=== PATIENT | male | born 1965 | race Hispanic/Latino ===

== ENCOUNTER 2018-07-29 00:23 | Emergency (ER) | payer OTHER ==
[2018-07-29 00:32] VITALS: BP 121/85
[2018-07-29] MEDS ORDERED: FLEXERIL PO ONE (03:59)
[2018-07-29] MEDS ORDERED: TORADOL IM ONE ×2 (03:59→04:24)
[2018-07-29] MEDS ORDERED: MORPHINE IM ONE (04:06)
[2018-07-29] MEDS ORDERED: TORADOL ONE (04:18)
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
== END 2018-07-29 05:25 | disposition home or self-care (01) ==
LOC: ED 00:23
DX: M54.2 Cervicalgia (principal); V89.2XXA Person injured in unspecified motor-vehicle accident, traffic, initial encounter; Y93.89 Activity, other specified; Y92.488 Other paved roadways as the place of occurrence of the external cause; Y99.8 Other external cause status
CPT/HCPCS: 96372; 99282; J1885; J2270

== ENCOUNTER 2020-02-07 11:52 | Emergency (ER) | payer SELFPAY ==
[2020-02-07 13:30] LABS: Alanine Aminotransferase 23 units/L (7-56); Albumin 4.1 g/dL (3.9-5); BUN/Creatinine Ratio 16; Blood Urea Nitrogen 16 mg/dL (9-20); Calcium 9.1 mg/dL (8.4-10.2); Hemolysis Index 2
[2020-02-07 13:33] LABS: Basophils % (Auto) 0.4 % (0.0-1.8); Eosinophils # (Auto) 0.1 K/mm3 (0.0-0.4); Hematocrit 43.9 % (35.5-45.6); Hemoglobin 14.3 gm/dl (11.8-15.2); Lymphocytes # (Auto) 1.2 K/mm3 (1.2-5.4); Lymphocytes % (Auto) 20.6 % (13.4-35.0); Mean Corpuscular HGB Conc 33 % (32-34); Mean Corpuscular Volume 94 fl (84-94); Monocytes # (Auto) 0.5 K/mm3 (0.0-0.8); Monocytes % (Auto) 8.6 % (0.0-7.3); Platelet Count 229 K/mm3 (140-440); Red Blood Count 4.65 M/mm3 (3.65-5.03); Red Cell Distribution Width 15.1 % (13.2-15.2)
[2020-02-07 13:36] LABS: Bilirubin,Urine SM (Negative); Blood,Urine NEG (Negative); Color,Urine Amber (Yellow); Mucus,Urine 3+ /HPF
[2020-02-07 13:53] LABS: Ictotest,Urine Negative (Negative)
[2020-02-07] MEDS ORDERED: SODIUM CHLORIDE 0.9% 1000 ML 1,000 ML IV ONE (14:03)
[2020-02-07] MEDS ORDERED: FAMOTIDINE 20 MG/2 ML INJ IV ONE (14:03)
[2020-02-07] MEDS ORDERED: DICYCLOMINE 20 MG/2 ML INJ IM ONE (14:03)
[2020-02-07] MEDS ORDERED: ONDANSETRON 4 MG/2 ML INJ IV ONE (14:03)
--- NOTE | 2020-02-07 14:43 | XRay Report ---
ABDOMEN 4 VIEW(S) WITH PA CHEST INDICATION / CLINICAL INFORMATION: Nausea, vomiting, and diarrhea. COMPARISON: None available. FINDINGS: Chest: The cardiomediastinal silhouette is unremarkable. The lungs are clear. No pleural effusion. No pneumothorax. TUBES / LINES: None. BOWEL GAS PATTERN: There are multiple mildly dilated loops of small bowel with air-fluid levels ident ified. FREE AIR / EXTRALUMINAL GAS: None seen. ADDITIONAL FINDINGS: There is a circular metallic object projecting over the midline chest. IMPRESSION: 1. Multiple mildly dilated loops of small bowel with air-fluid levels suggestive of a developing giovanni l obstruction. 2. A circular metallic object projecting over the mid chest is presumably external to the patient, th ough clinical correlation is recommended. Signer Name: Valentina Christian MD Signed: 02/07/2020 2:39 PM Workstation Name: [id number]
--- NOTE | 2020-02-07 16:36 | Cat Scan Report ---
CT abdomen pelvis w con INDICATION: abd distension. TECHNIQUE: All CT scans at this location are performed using the following dose modulation technique: Automated exposure control. Helical slices were obtained through the abdomen and pelvis. 100 cc of Omnipaque 30 0 is administered. COMPARISON: None available. FINDINGS: Abdomen: There is a small hiatal hernia. There is a tiny right pleural effusion. The liver, spleen, pancreas, adrenal glands, and kidneys show no acute abnormality. There is a cyst i n the lower pole of the right kidney. There is no free air. There are fluid-filled loops of small bowel in the abdomen and there is some mild wall thickening in the small bowel loops in the midabdomen. The appearance is suspicious for an enteritis. There is no a denopathy. The aorta is normal in diameter. Pelvis: There is a very small amount of ascites in the pelvis. There are no abnormal fluid collection s. There are scattered diverticula in the colon. On review of bone windows, no acute osseous abnormalities are seen. . IMPRESSION: 1. There are fluid-filled loops of small bowel in the midabdomen with since areas of bowel wall thick ening. The appearance is most suspicious for an enteritis. There is a very small amount of ascites in the pelvis. There are no abnormal fluid collections. There is no free air. Signer Name: Trever Martel MD Signed: 02/07/2020 4:31 PM Workstation Name: [id number]
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
[2020-02-07 18:36] VITALS: BP 134/82
== END 2020-02-07 18:36 | disposition home or self-care (01) ==
LOC: ED 11:52
DX: K52.9 Noninfective gastroenteritis and colitis, unspecified (principal); A05.9 Bacterial foodborne intoxication, unspecified; Z79.899 Other long term (current) drug therapy; Z98.890 Other specified postprocedural states
CPT/HCPCS: 36415; 74022; 74177; 80053; 81001; 83690; 85025; 96361; 96372; 96374; 96375; 99284; J0500; J2405; J7030; Q9967

== ENCOUNTER 2020-05-05 23:35 | Emergency (ER) | payer SELFPAY ==
[2020-05-05 23:45] VITALS: BP 137/86
--- NOTE | 2020-05-06 | Emergency Department Report ---
Chief Complaint: Earache Stated Complaint: LEFT SIDE EARACHE Time Seen by Provider: 05/05/20 23:53 - HPI History of Present Illness: Patient is a 54-year-old male presents emergency room with complaints of a left- sided earache that began 4 to 5 days ago. He denies any ear drainage, tinnitus, hearing loss, sore throat, fever, chills, nausea, vomiting, diarrhea, cough, shortness of breath. He denies any past medical history. No allergies medications. He denies any known sick contacts or recent travel. Vitals with tachycardia, otherwise stable On exam: Non toxic appearing, no acute distress atraumatic, normocephalic normal appearance of the eyes, PERRL, EOMI, no periorbital edema or ecchymosis moist mucus membranes, normal oropharynx, normal TMs and canals bilaterally, no mastoid tenderness palpation bilaterally regular heart rate and rhythm, no gallops, no rubs, no murmurs breath sounds are clear bilaterally, no w/r/r A&O x4, no focal neuro deficit skin is warm, dry, intact Patient is presenting for otalgia No abnormality on physical examination, no signs of infection Patient will be referred to primary care doctor Discussed supportive care and symptomatic treatment Discussed strict return precautions Medical screening examination performed there is no threat to life or limb at this time - Exam Vital Signs: Vital Signs 05/05/20 23:41 Temperature 98.4 F Pulse Rate 107 H Respiratory 18 Rate Blood Pressure 137/86 O2 Sat by Pulse 95 Oximetry MSE screening note: Focused history and physical exam performed. Due to findings the following was ordered: ED Disposition for MSE Clinical Impression: Otalgia, left ear Disposition: Z-07 MED SCREENING EXAM-LEFT Is pt being admited?: No Does the pt Need Aspirin: No Condition: Stable Instructions: Earache, Adult Additional Instructions: May alternate Tylenol or ibuprofen as needed for discomfort. May use [id number] ear relief drops. May use something for sinus pressure [id number]. Follow-up with your primary care doctor for reexamination. Return to emergency room for any new or worsening symptoms. Referrals: JASON KONG MD [Staff Physician] - 2-3 Days [facility] [Provider Group] - 2-3 Days [facility], [LAB/CONTRACT] - 2-3 Days [facility] [Outside] - 2-3 Days Forms: Work/School Release Form(ED) Time of Disposition: 23:59 Print Language: TURKMEN
== END 2020-05-06 02:50 | disposition left against medical advice (07) ==
LOC: ED 23:35
DX: H92.02 Otalgia, left ear (principal); Z53.21 Procedure and treatment not carried out due to patient leaving prior to being seen by health care provider

== ENCOUNTER 2021-01-03 02:10 | Emergency (ER) | payer SELFPAY ==
--- NOTE | 2021-01-03 03:10 | Emergency Department Report ---
ED Eye Problem HPI - General Chief complaint: Eye Problems Stated complaint: LEFT EYE PAIN Source: patient Mode of arrival: Ambulatory Limitations: No Limitations - History of Present Illness Initial comments: Patient is a 55-year-old white male with a history of paranoid schizophrenia who presents to the ED with complaint of acute onset persistent painful left eye with purulent discharge and matting for the last 24 hours after he accidentally applied a particular eyedrop which he did not know about causing persistent pain. Patient states that in the last 12 hours, the pain in the left has been persistent and discharge has also been persistent. Patient denies vision loss, dizziness, syncope, headache, chest pain, shortness of breath, traumatic injury, fever and chills. MD chief complaint: eye pain (left eye pain), eye redness, other (left eye matting) -: Sudden, days(s) (2) Onset Description: sudden Location: left eye Place: home If Injury: chemical exposure (applied wrong eye drops) Eye Symptoms: burning, redness, pain, discharge Severity: mild Severity scale (0 -10): 3 If Pain, Quality: burning, aching Consistency: constant Context: injury (applied wrong eye drops) Associated Symptoms: none Treatments Prior to Arrival: irrigated eye, OTC eye drops - Related Data Patient Tetanus UTD: Yes Previous Rx's Medication Instructions Recorded Last Taken Type Cyclobenzaprine [Flexeril] 10 mg PO TID PRN #30 tablet 07/29/18 Unknown Rx Menthol/Camphor [[place] 1 applicatio TP QID PRN #1 tube 07/29/18 Unknown Rx Ointment] Naproxen [Naprosyn] 500 mg PO BID PRN #30 tablet 07/29/18 Unknown Rx Ciprofloxacin HCl [Ciprofloxacin 500 mg PO Q12HR #14 tab 02/07/20 Unknown Rx TAB] Dicyclomine [Bentyl] 20 mg PO QID #10 tablet 02/07/20 Unknown Rx Ondansetron [Zofran Odt] 4 mg PO Q8HR #10 tab.rapdis 02/07/20 Unknown Rx metroNIDAZOLE [Flagyl] 500 mg PO Q12HR #14 tab 02/07/20 Unknown Rx Gentamicin 0.3% Ophth Soln 1 drops OP Q4H #5 ml 01/03/21 Unknown Rx Ibuprofen [Motrin] 600 mg PO Q8H PRN #20 tablet 01/03/21 Unknown Rx Allergies Allergy/AdvReac Type Severity Reaction Status Date / Time No Known Allergies Allergy Verified 01/03/21 02:45 ED Review of Systems ROS: Stated complaint: LEFT EYE PAIN Other details as noted in HPI Constitutional: denies: chills, fever Eyes: eye pain (Left eye pain), eye discharge (Left eye discharge). denies: vision change ENT: denies: ear pain, throat pain Respiratory: denies: cough, shortness of breath, wheezing Cardiovascular: denies: chest pain, palpitations Endocrine: no symptoms reported Gastrointestinal: denies: abdominal pain, nausea, diarrhea Genitourinary: denies: urgency, dysuria Musculoskeletal: denies: back pain, joint swelling, arthralgia Skin: denies: rash, lesions Neurological: denies: headache, weakness, paresthesias Psychiatric: denies: anxiety, depression Hematological/Lymphatic: denies: easy bleeding, easy bruising ED Past Medical Hx - Past Medical History Previous Medical History?: Yes Additional medical history: Paranoid Schizophrenia - Surgical History Past Surgical History?: Yes Additional Surgical History: abd sx "somewhere in my esophagus", 2015, Abd hernia - Social History Smoking Status: Never Smoker Substance Use Type: None - Medications Home Medications: Home Medications Medication Instructions Recorded Confirmed Last Taken Type Cyclobenzaprine [Flexeril] 10 mg PO TID PRN #30 tablet 07/29/18 Unknown Rx Menthol/Camphor [[place] 1 applicatio TP QID PRN #1 tube 07/29/18 Unknown Rx Ointment] Naproxen [Naprosyn] 500 mg PO BID PRN #30 tablet 07/29/18 Unknown Rx Ciprofloxacin HCl [Ciprofloxacin 500 mg PO Q12HR #14 tab 02/07/20 Unknown Rx TAB] Dicyclomine [Bentyl] 20 mg PO QID #10 tablet 02/07/20 Unknown Rx Ondansetron [Zofran Odt] 4 mg PO Q8HR #10 tab.rapdis 02/07/20 Unknown Rx metroNIDAZOLE [Flagyl] 500 mg PO Q12HR #14 tab 02/07/20 Unknown Rx Gentamicin 0.3% Ophth Soln 1 drops OP Q4H #5 ml 01/03/21 Unknown Rx Ibuprofen [Motrin] 600 mg PO Q8H PRN #20 tablet 01/03/21 Unknown Rx ED Physical Exam - General Limitations: No Limitations General appearance: alert, in no apparent distress - Head Head exam: Present: atraumatic, normocephalic, normal inspection - Eye Eye exam: Present: normal appearance, PERRL, EOMI, other (Mild erythematous left conjunctiva with thick purulent discharge and matting) Pupils: Present: normal accommodation - ENT ENT exam: Present: normal exam, normal orophraynx, mucous membranes moist, TM's normal bilaterally, normal external ear exam - Neck Neck exam: Present: normal inspection, full ROM - Respiratory Respiratory exam: Present: normal lung sounds bilaterally. Absent: respiratory distress, wheezes, rales, rhonchi, chest wall tenderness, accessory muscle use, decreased breath sounds, prolonged expiratory - Cardiovascular Cardiovascular Exam: Present: regular rate, normal rhythm, normal heart sounds. Absent: systolic murmur, diastolic murmur, rubs, gallop - GI/Abdominal GI/Abdominal exam: Present: soft, normal bowel sounds. Absent: tenderness, guarding, hyperactive bowel sounds, hypoactive bowel sounds, organomegaly, mass - Extremities Exam Extremities exam: Present: normal inspection, full ROM, normal capillary refill - Back Exam Back exam: Present: normal inspection, full ROM. Absent: tenderness, CVA tenderness (R), CVA tenderness (L), muscle spasm, paraspinal tenderness, vertebral tenderness - Neurological Exam Neurological exam: Present: alert, oriented X3, CN II-XII intact, normal gait, reflexes normal - Psychiatric Psychiatric exam: Present: normal affect, normal mood - Skin Skin exam: Present: warm, dry, intact, normal color. Absent: rash ED Course Vital Signs 01/03/21 01/03/21 02:37 03:23 Temperature 98.7 F Pulse Rate 104 H Respiratory 16 20 Rate Blood Pressure 124/93 Blood Pressure 134/91 [Left] O2 Sat by Pulse 97 Oximetry ED Medical Decision Making - Medical Decision Making This is a 55-year-old white male with a history of paranoid schizophrenia who presents to the ED with complaint of acute onset persistent painful left eye with purulent discharge and matting for the last 24 hours after he accidentally applied a particular eyedrop which he did not know about causing persistent pain. Patient states that in the last 12 hours, the pain in the left has been persistent and discharge has also been persistent. In the ED, patient is alert and oriented x3 and is not in any distress. Based on the history and physical exam findings, the patient will discharge home on medications and advised to follow-up with his primary care physician in 7 to 10 days for reevaluation. Patient was also given a referral to the solar designer/installer Dr. Babin for follow- up. Patient is advised return to the ED immediately if symptoms get worse. - Differential Diagnosis Conjunctivitis; left eye injury; Critical care attestation.: If time is entered above; I have spent that time in minutes in the direct care of this critically ill patient, excluding procedure time. ED Disposition Clinical Impression: Left eye injury Qualifiers: Encounter type: initial encounter Qualified Code(s): S05.92XA - Unspecified injury of left eye and orbit, initial encounter Acute conjunctivitis of left eye Qualifiers: Acute conjunctivitis type: unspecified Qualified Code(s): H10.32 - Unspecified acute conjunctivitis, left eye Disposition: HOME / SELF CARE / HOMELESS Is pt being admited?: No Does the pt Need Aspirin: No Condition: Stable Instructions: Bacterial Conjunctivitis, Adult, [id number], How to Use Eye Drops and Eye Ointments Additional Instructions: Apply the medication to the affected eye as advised, take pain medication as needed with food, drink plenty of fluids and follow-up with your primary care physician in 7 to 10 days for reevaluation. Consider following up with an solar designer/installer Dr. Babin as advised. Return to the ED immediately if symptoms get worse Prescriptions: Gentamicin 0.3% Ophth Soln 1 drops OP Q4H #5 ml Ibuprofen [Motrin] 600 mg PO Q8H PRN #20 tablet PRN Reason: Pain Referrals: MARIE CHAO MD [Staff Physician] - 3-5 Days Forms: Work/School Release Form(ED) Time of Disposition: 03:08 Print Language: SETSWANA
[2021-01-03 03:25] VITALS: BP 134/91
== END 2021-01-03 03:25 | disposition home or self-care (01) ==
LOC: ED 02:10
DX: S05.92XA Unspecified injury of left eye and orbit, initial encounter (principal); H10.32 Unspecified acute conjunctivitis, left eye; Z79.899 Other long term (current) drug therapy; X58.XXXA Exposure to other specified factors, initial encounter; Y93.89 Activity, other specified; Y92.89 Other specified places as the place of occurrence of the external cause; Y99.8 Other external cause status
CPT/HCPCS: 99282